=== PATIENT | male | born 1960 | race African-American/Black ===

== ENCOUNTER 2020-12-30 18:03 | Outpatient (REF) | payer MEDICARE, SELFPAY | END 2020-12-30 18:04 | disposition home or self-care (01) | LOC: HO.MRI 18:03 | PROVIDERS: PCP Internal Medicine Geriatric Medicine; Visit Provider Internal Medicine Geriatric Medicine | DX: Z13.89 Encounter for screening for other disorder (principal) ==

== ENCOUNTER 2021-05-22 14:49 | Outpatient (REF) | payer MEDICARE, SELFPAY ==
--- NOTE | ~2021-05-22 | US_ITS ---
EXAMINATION: US VENOUS ULTRASOUND WITH DOPPLER LOWER EXTREMITY, RIGHT CLINICAL INFORMATION: Right lower extremity pain. Assess for occult DVT. COMPARISON: None TECHNIQUE: Ultrasound of the deep veins is performed from the hip to the calf with compression sonography and color and pulse Doppler assessment. Spectral analysis with color-flow imaging is performed. FINDINGS: There is normal venous compression and respiratory variation and augmented flow. The visualized common femoral vein, superficial femoral vein, profunda femoral vein, popliteal vein, and the trifurcation region shows no evidence of deep venous thrombosis. No popliteal fossa cyst demonstrated. US/US venous duplex LE RT IMPRESSION: No DVT demonstrated in the right lower extremity.
[2021-05-22 17:11] LABS: Alanine Aminotransferase 16 U/L (0-40); Albumin Level 4.5 g/dL (3.5-5.0); Alkaline Phosphatase 81 U/L (39-117); Anion Gap 10 (12-20); Aspartate Amino Transferase 19 U/L (5-37); Bilirubin Total 1.1 mg/dL (0.0-1.0); Blood Urea Nitrogen 14 mg/dL (9-16); Calcium 9.5 mg/dL (8.4-10.2); Carbon Dioxide 27 mmol/L (22-29); Chloride 108 mmol/L (96-108); Estimated Glomerular Filt Rate 58; Glucose Random 82 mg/dL (60-115); Phosphorus 3.2 mg/dL (2.7-4.5); Potassium 4.1 mmol/L (3.3-5.1); Sodium 141 mmol/L (135-145)
[2021-05-22 17:36] LABS: Vitamin D 25-OH Total 45.2 ng/mL (>30)
[2021-05-23 17:01] LABS: Calcium (PTHI) 9.8 mg/dL (8.6-10.3); PTHI 31 pg/mL (14-64)
== END 2021-05-22 14:50 | disposition home or self-care (01) ==
LOC: HO.US 14:49
PROVIDERS: Internal Medicine; Visit Provider Internal Medicine Geriatric Medicine
DX: M79.661 Pain in right lower leg (principal); R79.89 Other specified abnormal findings of blood chemistry; E04.1 Nontoxic single thyroid nodule; E21.3 Hyperparathyroidism, unspecified; E55.9 Vitamin D deficiency, unspecified
CPT/HCPCS: 36415; 80053; 82306; 83970; 84100; 84439; 84443; 93971; Q3014

== ENCOUNTER 2021-05-27 15:48 | Outpatient (REF) | payer MEDICARE, SELFPAY ==
[2021-05-27 17:04] LABS: Alanine Aminotransferase 17 U/L (0-40); Albumin Level 4.5 g/dL (3.5-5.0); Alkaline Phosphatase 86 U/L (39-117); Aspartate Amino Transferase 18 U/L (5-37); Bilirubin Direct 0.3 mg/dL (0.0-0.5); Bilirubin Total 1.1 mg/dL (0.0-1.0); Total Protein 8.1 g/dL (6.5-8.0)
== END 2021-05-27 15:49 | disposition home or self-care (01) ==
LOC: HO.LAB 15:48
PROVIDERS: PCP Internal Medicine Geriatric Medicine; Visit Provider Internal Medicine
DX: E21.3 Hyperparathyroidism, unspecified (principal)
CPT/HCPCS: 36415; 80076

== ENCOUNTER → 2021-07-17 12:47 | Outpatient (BNVA) | payer MEDICARE, SELFPAY | PROVIDERS: PCP Internal Medicine Geriatric Medicine; Referring Provider Internal Medicine Geriatric Medicine; Visit Provider Nurse Practitioner | DX: E80.6 Other disorders of bilirubin metabolism (principal) | CPT/HCPCS: Q3014 ==

== ENCOUNTER 2021-08-07 07:54 | Outpatient (REF) | payer MEDICARE, SELFPAY ==
--- NOTE | ~2021-08-07 | US_ITS ---
EXAMINATION: US ABDOMEN COMPLETE CLINICAL INFORMATION: Other disorders of bilirubin metabolism. COMPARISON: Renal ultrasound 03/30/2019 TECHNIQUE: Real-time imaging of the abdominal viscera. FINDINGS: PANCREAS: Normal. ABDOMINAL AORTA: The proximal, mid, and distal segments are normal in caliber. INFERIOR VENA CAVA: Visualized portions are normal. LIVER: The liver is normal in size. The liver contour is normal. Liver echotexture is increased. No focal hepatic lesion. There is no intrahepatic biliary duct dilatation seen. GALLBLADDER: Normal. The gallbladder is physiologically distended without evidence of stones, sludge, polyps, wall thickening or pericholecystic fluid. COMMON BILE DUCT: Normal in caliber measuring 0.5 cm in diameter. RIGHT KIDNEY: There are 2 small 3 mm echogenic densities in the mid and lower pole questionable for stones. No hydronephrosis or focal parenchymal lesions. The kidney measures 11.9 cm in maximum dimension. LEFT KIDNEY: There is a small 2 and 3 mm echogenic densities in the upper and midpole questionable for stones.. There is a 3.8 x 3.6 x 3.1 cm cyst in the lower pole. This measured 2.8 x 2.8 x 3 cm on March 2019 exam. No hydronephrosis or renal calculi. The kidney measures 13.3 cm in maximum dimension. SPLEEN: Normal. The spleen measures 8.2 cm in maximum dimension. FREE FLUID: None. US/US abdomen complete IMPRESSION: Echogenic liver probably representing fatty infiltration. Question small bilateral renal stones. Left renal cyst.
== END 2021-08-07 07:55 | disposition home or self-care (01) ==
LOC: HO.US 07:54
PROVIDERS: PCP Internal Medicine Geriatric Medicine; Visit Provider Nurse Practitioner
DX: E80.6 Other disorders of bilirubin metabolism (principal)
CPT/HCPCS: 76700

== ENCOUNTER → 2021-08-14 14:57 | Outpatient (BNVA) | payer MEDICARE, SELFPAY | PROVIDERS: PCP Internal Medicine Geriatric Medicine; Referring Provider Internal Medicine Geriatric Medicine; Visit Provider Nurse Practitioner | DX: E80.6 Other disorders of bilirubin metabolism (principal) | CPT/HCPCS: 99212 ==

== ENCOUNTER → 2021-09-08 08:53 | Outpatient (BNVA) | payer MEDICARE, SELFPAY | PROVIDERS: PCP Internal Medicine Geriatric Medicine; Visit Provider Internal Medicine ==

== ENCOUNTER → 2021-09-08 09:10 | Outpatient (BNVA) | payer MEDICARE, SELFPAY | PROVIDERS: PCP Internal Medicine Geriatric Medicine; Visit Provider Internal Medicine | DX: E21.3 Hyperparathyroidism, unspecified (principal); E55.9 Vitamin D deficiency, unspecified; E04.1 Nontoxic single thyroid nodule | CPT/HCPCS: Q3014 ==

== ENCOUNTER 2023-08-03 12:17 | Outpatient (REF) | payer MEDICARE, SELFPAY ==
[2023-08-03 13:33] LABS: Appearance Urine Clear; Color Urine Yellow; Glucose Urine UA Negative (Negative); Leukocyte Esterase Urine Small (1+) (Negative); Nitrite Urine Positive (Negative); PH 5.5 (5.0-9.0); UMIC TRIGGER UACC YES; Urine Blood Trace (Negative); Urine Ketones Negative (Negative); Urine Protein Negative (Neg-Trace)
[2023-08-03 13:50] LABS: Bacteria Urine 4+ (None Seen); Hyaline Casts Urine 0-2 /LPF (0-2); RBC Urine 0-2 /HPF (0-2); Squamous Epithelial Cell Urine 0-2 /HPF (0-2); UACC Culture Trigger YES; WBC Urine 21-50 /HPF (0-5)
[2023-08-03 14:03] LABS: Alanine Aminotransferase 17 U/L (0-40); Albumin Level 4.4 g/dL (3.5-5.0); Alkaline Phosphatase 94 U/L (39-117); Anion Gap 12 (12-20); Aspartate Amino Transferase 23 U/L (5-37); Bilirubin Total 1.5 mg/dL (0.0-1.0); Blood Urea Nitrogen 11 mg/dL (9-16); Calcium 9.4 mg/dL (8.4-10.2); Carbon Dioxide 24 mmol/L (22-29); Chloride 110 mmol/L (96-108); Cholesterol 143 mg/dL (<200); Estimated Glomerular Filt Rate > 60; Glucose Random 87 mg/dL (60-115); HDL Cholesterol 46 mg/dL (>40); LDL Cholesterol Calculated 84 mg/dL (<100); Potassium 3.4 mmol/L (3.3-5.1); Sodium 143 mmol/L (135-145); Triglycerides 69 mg/dL (<150)
== END 2023-08-03 12:18 | disposition home or self-care (01) ==
LOC: HO.HHCL 12:17
PROVIDERS: Visit Provider Internal Medicine Geriatric Medicine
DX: I10 Essential (primary) hypertension (principal); E78.00 Pure hypercholesterolemia, unspecified; R30.0 Dysuria
CPT/HCPCS: 36415; 80053; 80061; 81001; 87086; 87088; 87186

== ENCOUNTER 2024-01-20 12:30 | Outpatient (REF) | payer MEDICARE, SELFPAY ==
[2024-01-20 13:28] LABS: Basophils Absolute Auto 0.1 X10*3/uL (0.0-0.2); Basophils Percent Auto 0.6 % (0-2); Eosinophils Absolute Auto 0.1 X10*3/uL (0.0-0.4); Eosinophils Percent Auto 1.6 % (0-4); Hematocrit 44.9 % (42.0-52.0); Hemoglobin 15.4 g/dl (14.0-18.0); Imm Gran Abs Auto 0.01 X10*3/uL (0.00-0.03); Imm Gran Pct Auto 0.1 % (0.0-0.4); Lymphocytes Absolute Auto 5.3 X10*3/uL (1.2-4.9); Lymphocytes Percent Auto 59.9 % (20-40); MANUAL DIFF FLAG SCAN; Mean Corpuscular HGB Conc 34.3 g/dl (31.0-36.0); Mean Corpuscular Hemoglobin 30.1 pg (27.0-33.0); Mean Corpuscular Volume 87.7 fL (80.0-98.0); Mean Platelet Volume 11.6 fL (9.4-12.4); Monocytes Absolute Auto 0.5 X10*3/uL (0.1-1.2); Neutrophils Absolute Auto 2.8 x10*3/uL (2.0-8.3); Neutrophils Percent Auto 31.8 % (45-73); Platelet Count 238 X10*3/uL (160-400); Red Blood Count 5.12 X10*6/uL (4.60-5.80); Red Cell Distribution Width 12.9 % (11.0-16.0); SCAN SMEAR FLAG 1; White Blood Count 8.9 X10*3/uL (4.8-10.8)
[2024-01-20 13:51] LABS: SLIDE REVIEW VERIFIED
[2024-01-20 14:00] LABS: Alanine Aminotransferase 16 U/L (0-40); Albumin Level 4.6 g/dL (3.5-5.0); Alkaline Phosphatase 95 U/L (39-117); Anion Gap 9 (12-20); Aspartate Amino Transferase 23 U/L (5-37); Bilirubin Total 1.4 mg/dL (0.0-1.0); Blood Urea Nitrogen 12 mg/dL (9-16); Calcium 9.7 mg/dL (8.4-10.2); Carbon Dioxide 29 mmol/L (22-29); Chloride 109 mmol/L (96-108); Cholesterol 230 mg/dL (<200); Estimated Glomerular Filt Rate > 60; Glucose Random 90 mg/dL (60-115); HDL Cholesterol 51 mg/dL (>40); LDL Cholesterol Calculated 160 mg/dL (<100); Potassium 3.6 mmol/L (3.3-5.1); Sodium 143 mmol/L (135-145); Total Protein 8.5 g/dL (6.5-8.0); Triglycerides 98 mg/dL (<150)
[2024-01-20 14:23] LABS: Prostate Specific Antigen < 0.10 ng/mL (<0.05-4.0)
== END 2024-01-20 12:31 | disposition home or self-care (01) ==
LOC: HO.HHCL 12:30
PROVIDERS: Visit Provider Internal Medicine Geriatric Medicine
DX: Z12.5 Encounter for screening for malignant neoplasm of prostate (principal); E78.00 Pure hypercholesterolemia, unspecified; M51.37 Other intervertebral disc degeneration, lumbosacral region; L43.9 Lichen planus, unspecified; E21.3 Hyperparathyroidism, unspecified; Z90.79 Acquired absence of other genital organ(s); I10 Essential (primary) hypertension
CPT/HCPCS: 36415; 80053; 80061; 84153; 85025

== ENCOUNTER 2024-04-27 12:35 | Outpatient (REF) | payer MEDICARE, SELFPAY ==
[2024-04-27 16:27] LABS: Alanine Aminotransferase 18 U/L (0-40); Albumin Level 4.5 g/dL (3.5-5.0); Alkaline Phosphatase 85 U/L (39-117); Anion Gap 13 (12-20); Aspartate Amino Transferase 20 U/L (5-37); Bilirubin Total 1.1 mg/dL (0.0-1.0); Blood Urea Nitrogen 15 mg/dL (9-16); Calcium 10.2 mg/dL (8.4-10.2); Carbon Dioxide 24 mmol/L (22-29); Chloride 110 mmol/L (96-108); Cholesterol 218 mg/dL (<200); Estimated Glomerular Filt Rate 59; Glucose Random 92 mg/dL (60-115); HDL Cholesterol 56 mg/dL (>40); LDL Cholesterol Calculated 144 mg/dL (<100); Potassium 3.8 mmol/L (3.3-5.1); Sodium 143 mmol/L (135-145); Total Protein 8.3 g/dL (6.5-8.0); Triglycerides 90 mg/dL (<150)
[2024-04-28 09:21] LABS: ~HepC Num1 0.18 S/CO (0.00-0.79); ~Hepatitis C Antibody Nonreactive (Nonreactive)
== END 2024-04-27 12:36 | disposition home or self-care (01) ==
LOC: HO.HHCL 12:35
PROVIDERS: Visit Provider Internal Medicine Geriatric Medicine
DX: Z11.59 Encounter for screening for other viral diseases (principal); E78.00 Pure hypercholesterolemia, unspecified
CPT/HCPCS: 36415; 80053; 80061; 86803

== ENCOUNTER 2024-09-05 10:07 | Outpatient (REF) | payer MEDICARE, SELFPAY ==
--- NOTE | 2024-09-05 10:10 | EMG_ITS ---
FINDINGS: Bilateral median and ulnar motor and sensory studies were performed. Bilateral radial and median and lateral antecubital brachial sensory studies were performed and paraspinal muscles were tested with a needle. IMPRESSION: This is an unremarkable study with no evidence of median or ulnar neuropathy, plexopathy, or radiculopathy. MD CHRISTIAN Mireles/ANNE / [id number]
== END 2024-09-05 10:08 | disposition home or self-care (01) ==
LOC: HO.NEURO 10:07
PROVIDERS: PCP Internal Medicine Geriatric Medicine; Visit Provider Internal Medicine Geriatric Medicine
DX: G56.03 Carpal tunnel syndrome, bilateral upper limbs (principal)
CPT/HCPCS: 95886; 95913

== ENCOUNTER 2024-12-15 12:04 | Outpatient (REF) | payer MEDICARE, SELFPAY ==
--- OUTSIDE RECORDS SUMMARY | 2024-12-15 13:46 | XMS_ITS | Encounter Summary ---
Author Organization [employer] Address [address] [facility] [address] [place] [address] Care Team Providers Care Mammalogist Name Role Phone Name, Arsh NEWBY Primary Care Provider [phone] Encounter Details Date Type Department Care Team (Latest Contact Info) Description 04/01/2021 Abstract [facility] Dental, Provider, DDS Social History Tobacco Use Types Packs/Day Years Used Date Smoking Tobacco: Never Assessed Sex and Gender Information Value Date Recorded Sex Assigned at Male 08/03/2022 10:35 AM EDT Legal Sex Male 10:35 AM EDT Gender Identity Male 08/03/2022 10:35 AM EDT Sexual Orientation Straight 08/03/2022 10 :35 AM EDT documented as of this encounter Plan of Treatment Not on file documented as of this encounter Visit Diagnoses Not on filedocumented in this encounter Care Teams Mammalogist Relationship Specialty Start Date End Date Name, MD Arsh [address] [place] [address] PCP - General Family Medicine 12/23/18 documented as of this encounter
--- OUTSIDE RECORDS SUMMARY | 2024-12-15 13:46 | XMS_ITS | Encounter Summary ---
Author Organization [employer] Address [address] [facility] [address] [place] [address] Care Team Providers Care Flight Test Supervisor Name Role Phone Name, Arsh NEWBY Primary Care Provider [phone] Reason for Visit * Reason Comments Med Refill Encounter Details Date Type Department Care Team ([facility] st Contact Info) Description 11/17/2023 Refill [facility] [address] [place] [address] Name, MD Arsh [address] [place], [place] [id number] High cholesterol Social History Tobacco Use Types Packs/Day Years Used Date Smoking Tobacco: Never Smokeless Tobacco: Never Alcohol Use Standard Drinks/Week Comments Never 0 (1 standard drink = 0.6 oz pur e alcohol) Depression Answer Date Recorded Patient Health Questionnaire-9 Score 0 02/25/2023 Housing Stability Answer Date Recorded What is your housing situation today? I have jane diaz 08/02/[address] you li ve. Do you have problems with any of the following? None of the above 08/02/2023 Food Insecurity Answer Date Recorded Within the past 12 months, y ou worried that your food would run out before you got money to buy more: Never True 08/02/2023 Within the past 12 months,th e food you bought just didn't last and you didn't have enough money to get more: Never True Transportation Answer Date Recorded In the past 12 months, has l ack of transportation kept you from medical appts, meetings, work or from getting things needed for daily living? No 08/02/2023 Utilities Answer Date Recorded In the past 12 months, has t he electric, gas, oil or water company threatened to shut off services in your home? No 08/02/2023 Depression Answer Date Recorded Patient Health Questionnaire-2 Score 0 02/25/2023 Sex and Gender Information Value Date Recorded Sex Assigned at Male 08/03/2022 10:35 AM EDT Legal Sex Male 10:35 AM EDT Gender Identity Male 08/03/2022 10:35 AM EDT Sexual Orientation Straight 08/03/2022 10 :35 AM EDT documented as of this encounter Plan of Treatment Not on file documented as of this encounter Visit Diagnoses Diagnosis High cholesterol Pure hypercholesterolemia documented in this encounter Additional Health Concerns Assessment Noted Time PHQ-9 Depression Total Score: 0 02/26/20 23 11:09 AM EDT documented as of this encounter Care Teams Flight Test Supervisor Relationship Specialty Start Date End Date Name, MD Arsh [address] [place] [address] PCP - General Family Medicine 12/23/18 documented as of this encounter
--- OUTSIDE RECORDS SUMMARY | 2024-12-15 13:46 | XMS_ITS | Encounter Summary ---
Author Organization [employer] Address [address] [facility] [address] [place] [address] Care Team Providers Care Boat Oar Maker Name Role Phone Name, Arsh NEWBY Primary Care Provider [phone] Encounter Details Date Type Department Care Team (Latest Contact Info) Description 12/12/2024 Travel Social History Tobacco Use Types Packs/Day Years Used Date Smoking Tobacco: Never Smokeless Tobacco: Never Alcohol Use Standard Drinks/Week Comments Never 0 (1 standard drink = 0.6 oz pur e alcohol) Depression Answer Date Recorded Patient Health Questionnaire-9 Score 0 04/25/2024 Patient Health Questionnaire-9 Score 0 04/25/2024 Last PHQ-9: Questionnaire Data Not on file 0 04/25/2024 Housing Stability Answer Date Recorded What is your housing situation today? I have jane diaz 04/25/[address] you li ve. Do you have problems with any of the following? None of the above 04/25/2024 Food Insecurity Answer Date Recorded Within the past 12 months, y ou worried that your food would run out before you got money to buy more: Never True 04/25/2024 Within the past 12 months,th e food you bought just didn't last and you didn't have enough money to get more: Never True Transportation Answer Date Recorded In the past 12 months, has l ack of transportation kept you from medical appts, meetings, work or from getting things needed for daily living? No 04/25/2024 Utilities Answer Date Recorded In the past 12 months, has t he electric, gas, oil or water company threatened to shut off services in your home? No 04/25/2024 Depression Answer Date Recorded Patient Health Questionnaire-2 Score 0 04/25/2024 Internet Access Answer Date Recorded Internet Access Q1 No 06/05/2024 Internet Access Q2 I do not want or need it 11/2023 Sex and Gender Information Value Date Recorded Sex Assigned at Male 08/03/2022 10:35 AM EDT Legal Sex Male 10:35 AM EDT Gender Identity Male 08/03/2022 10:35 AM EDT Sexual Orientation Straight 08/03/2022 10 :35 AM EDT documented as of this encounter Plan of Treatment Not on file documented as of this encounter Visit Diagnoses Not on filedocumented in this encounter Additional Health Concerns Assessment Noted Time PHQ-9 Depression Total Score: 0 04/25/20 24 11:01 AM EDT documented as of this encounter Care Teams Boat Oar Maker Relationship Specialty Start Date End Date Name, MD Arsh [address] [place] [address] PCP - General Family Medicine 12/23/18 documented as of this encounter
--- OUTSIDE RECORDS SUMMARY | 2024-12-15 13:46 | XMS_ITS | Clinical Summary ---
Author Organization [employer] Address [address] [facility] [address] [place] [address] Care Team Providers Care Nurse Anesthesia Program Director Name Role Phone Name, Arsh NEWBY Primary Care Provider [phone] Allergies No known active allergies Medications omeprazole (PriLOSEC) [address] capsule Take 1 capsule by mouth at bed time. 2 Active Blood Pressure Monitor kitIndications:Es sential hypertension Use once a day 1 kit 3 Active triamcinolone (Kenalog) 0.1 % ointmentIndicatio ns:Lichen planus Apply topically 2 times daily. 453.6 g 1 3 Active amLODIPine (Norvasc) 5 MG tabletIndications :Primary hypertension Take 1 tablet (5 mg) by mouth Once per day. 30 tablet 11 4 04/25/20 25 Active ezetimibe (Zetia) 10 MG tablet Take 1 tablet (10 mg) by mouth Once per day. 30 tablet 11 4 04/28/20 25 Active tadalafil (Cialis) 20 MG tablet Take 1 tablet (20 mg) by mouth if needed each day for erectile dysfunction. 10 tablet 4 Active Active Problems Problem Noted Date Diagnosed Date Statin intolerance 04/25/2024 High cholesterol 08/02/2023 Rash/skin eruption 08/02/2023 Overview (08/02/2023): -question mollescum contigosum, lichen planus -referral to dermatology placed Male urinary stress incontinence 10/28/2022 History of robot-assisted la paroscopic radical prostatectomy 10/28/2022 Hearing loss of left ear 10/28/2022 Primary hypertension 10/28/2022 Degeneration of intervertebral disc of lumbosacr al region 10/28/2022 Vitamin D deficiency 10/28/2022 Malignant tumor of prostate 07/29/2021 Overview (10/28/2022): S/p prostatectomy Hyperparathyroidism 01/06/2019 Overview (10/28/2022): S/p parathyroidectomy Chronic low back pain 12/23/2018 Rotator cuff arthropathy of left shoulder 2018 Radicular pain 12/23/2018 Resolved Problems Problem Noted Date Diagnosed Date Resolved Date Osteoarthritis of shoulder 10/28/2022 0 01/12/2024 Raised prostate specific antigen 10/28/2022 10/28/2022 Hypercalcemia 12/27/2018 04/25/2024 Encounters Date Type Department Care Team Description 12/12/2024 1:00 PM EDT Office Visit [facility] [address] [place] [address] Name, MD Arsh Primary hypertension (Primary Dx); High cholesterol; History of prostate cancer; S/P prostatectomy; Encounter for immunization 12/12/2024 Travel 10/05/2024 Telephone [facility] [address] [place] [address] Tomas Quiñones [place] Jan recalls from Last 3 Months Immunizations Name Administration Dates Next Due Influenza Injectable Quadriv alant Preservative Free IIV4 MDCK 07/08/2018 Influenza injectable quadriv alent preservative free 08/02/2023,06/26/2022,09/01/2021,2019 Influenza, IIV3, injectable 11/05/2017,1 ,09/06/2015,2012 Influenza, seasonal, injecta ble, preservative free 07/26/2024 Pfizer Covid-19 Vaccine 12+ 09/14/2023,1 11/09/2020,11/28/2020,2020 Pneumococcal Conjugate PCV 20 12/12/2024 Td (adult), unspecified 01/26/2001 Tdap 12/18/2020,11/10/2010 Zoster, Recombinant 11/28/2021,09/01/2021 Social History Tobacco Use Types Packs/Day Years Used Date Smoking Tobacco: Never Smokeless Tobacco: Never Tobacco Cessation:Counseling Given: Not Answered Alcohol Use Standard Drinks/Week Comments Never 0 [...] Orientation Straight 08/03/2022 10 :35 AM EDT Last Filed Vital Signs Vital Sign Reading Time Taken Comments Blood Pressure 136/80 12/12/2024 1:03 PM EDT Pulse 70 12/12/2024 1:03 PM EDT Temperature 36.6 ??C (97.8 ??F) 12/12/2024 1:03 PM ED T Respiratory Rate 21 12/12/2024 1:03 PM EDT Oxygen Saturation 98% 12/12/2024 1:03 PM EDT Inhaled Oxygen Concentration - - Weight 96.3 kg (212 lb 6.4 oz) 12/12/2024 1:03 P M EDT Height 180.3 cm (5' 11 ) 12/12/2024 1:03 PM EDT Body Mass Index 29.62 12/12/2024 1:03 PM EDT Plan of Treatment Health Maintenance Due Date Last Done Comments CT Colonography 1961 Colonoscopy 1961 FIT DNA/Cologuard 1961 FOBT 1961 HIV Screening 1961 Sigmoidoscopy 1961 COVID-19 Vaccine ( season) 2024 09/14/2023, 09/08/2021, 11/28/2020, Additional history exists Colorectal Cancer Screening 06/14/2024 FIT 06/14/2024 06/14/2023 Alcohol/Substance Use Screening 04/25/2025 04/25/2024 Depression Screening 04/25/2025 04/25/2024, 04/25/20 24 SDOH Screening 04/25/2025 04/25/2024 Tobacco Screening 12/12/2025 12/12/2024 Lipid Panel 04/27/2029 04/27/2024, 0405/2024, 08/03/2023, Additional history exists DTaP/Tdap/Td Vaccines (3 - Td or Tdap) 12/18/2030 12/18/2020, 11/10/2010, 01/26/2001 RSV Patients and Patients Aged 60 years or older (1 - 1-dose 75+ series) 2036 Zoster Vaccines Completed 11/28/2021, 09/01/2021 Hepatitis C Screening Completed 04/27/2024 Influenza Vaccine Completed 07/26/2024, , 06/26/2022, Additional history exists Pneumococcal Vaccine: 50+ Years Completed 12/12/2024 HIB Vaccines Aged Out No longer eligi ble based on patient's age to complete this topic HPV Vaccines Aged Out No longer eligi ble based on patient's age to complete this topic Hepatitis A Vaccines Aged Out No long er eligible based on patient's age to complete this topic Hepatitis B Vaccines Aged Out No long er eligible based on patient's age to complete this topic IPV Vaccines Aged Out No longer eligi ble based on patient's age to complete this topic Meningococcal Vaccine Aged Out No niki catherine eligible based on patient's age to complete this topic RSV under 20 months Aged Out No longe r eligible based on patient's age to complete this topic Rotavirus Vaccines Aged Out No longer eligible based on patient's age to complete this topic Procedures Procedure Name Priority Date/Time Associated Diagnosis Comments HEPATITIS C AB W/REFL TO HCV RNA, QN, PCR Routine 04/27/2024 12:45 PM EDT Need for hepatitis C screening test LIPID PANEL, STANDARD Routine 04/27/2024 12:45 PM EDT High cholesterol HM FECAL IMMUNOCHEMICAL TEST Routine 06/14/2023 from Last 3 Months or Most Recently Relevant to Health Maintenance Results * Hepatitis C Antibody with Reflex to HCV, RNA, Quantitative, Real-Time PCR (04/27/2024 12:45 PM EDT) Hepatitis C Antibody Nonreactive Nonreactive [facility] Comment:Antibodies to HCV no t detected; does not exclude early acuteHCV infection. Blood Venous blood specimen / Unknown 04/27/2024 12:45 PM EDT 04/27/2024 3:59 PM EDT us Arsh Name LAB BLOOD ORDERABLES Final Resul t [facility] [address] [place] [phone] * (ABNORMAL) Lipid Panel, Standard (04/27/2024 12:45 PM EDT) Triglycerides 90 <150 mg/dL [facility] Comment:Desirable Triglyceri de: less than 150 mg/dLBorderline High Triglyceride 150-199 mg/dLHigh Triglyceride: 200-499 mg/dLVery High Triglyceride: greater than or equal to 5OO mg/dL Cholesterol 218(H) <200 mg/dL [facility] Comment:Desirable Cholestero l: less than 200 mg/dLBorderline High Cholesterol: 200-239 mg/dLHigh Cholesterol: greater than 239 mg/dL LDL Cholesterol Calculated 144(H) <100 mg/dL [facility] Comment:Desirable LDL: less than 100 mg/dLNear Optimal/Above Optimal LDL: 110- 129 mg/dLBorderline High LDL: 130-159 mg/dLHigh LDL: 160-189 mg/dLVery High LDL: greater than or equal to 190 mg/dL HDL Cholesterol 56 >40 mg/dL [facility] Comment:Desirable HDL: great er than 40 mg/dL Note: This HDL assay may give artificially low results in patients with liver disease. Blood Venous blood specimen / Unknown 04/27/2024 12:45 PM EDT 04/27/2024 3:59 PM EDT us Arsh Piper MD LAB BLOOD ORDERABLES Final Resul t [facility] [address] [place] [phone] * Fecal Immunochemical Test (06/14/2023) Fecal Immunochemical Test Nonreactive Stool Rectal contents / Unknown us Arsh Piper MD HEALTH MAINTENANCE Final Result from Last 3 Months or Most Recently Relevant to Health Maintenance [place] [address] [place] [address] [facility] MEDICARE ADVANTAGE HMO Care Teams Nurse Anesthesia Program Director Relationship Specialty Start Date End Date Name, MD Arsh [address] [place] [id number] PCP - General Family Medicine 12/23/18
--- OUTSIDE RECORDS SUMMARY | 2024-12-15 13:46 | XMS_ITS | Encounter Summary ---
Author Organization [employer] Address [address] [facility] [address]t [place] [address] Care Team Providers Care House Carpenter Name Role Phone Name, Arsh NEWBY Primary Care Provider [phone] Reason for Visit * Reason Comments Follow-up Encounter Details Date Type Department Care Team ([facility] Contact Info) Description 12/12/2024 1:00 PM EDT Office Visit [facility] [address] [place], [place] [phone] Name, MD Arsh [address] [place] [address] Primary hypertension (Primary Dx); High cholesterol; History of prostate cancer; S/P prostatectomy; Encounter for immunization Social History Tobacco Use Types Packs/Day Years [...] AM EDT documented as of this encounter Last Filed Vital Signs Vital Sign Reading [...] Mass Index 29.62 12/12/2024 1:03 PM EDT documented in this encounter Progress Notes * Arsh Piper MD - 12/12/2024 1:00 PM EDT Subjective Patient ID: Akash Conley is a 64 y.o. male who presents for Follow-up. Patient comes for a follow-up visit. BP is well-controlled today. The patient is using his amlodipine daily. He has noted constipation secondary to the use of amlodipine. He has high cholesterol. He does not want to use a statin. He was prescribed Zetia for high cholesterol and he uses the medication most of the time. The patient has changed his diet considerably. The patient is avoiding animal protein. He is eatinga lot of vegetables, fruits, nuts and seeds. He would like to recheck his cholesterol and I agree. I also recommended to recheck his PSA. He has history of prostate cancer in the past. He was diagnosed because of an elevated PSA. Fortunately he had early disease that was treated with prostatectomy. His PSA last year was undetectable. Review of Systems Constitutional: Negative for chills, fatigue and fever. HENT: Negative for sore throat. Respiratory: Negative for cough, chest tightness and shortness of breath. Cardiovascular: Negative for chest pain, palpitations and leg swelling. Gastrointestinal: Negative for abdominal pain and blood in stool. Musculoskeletal: Chronic low back pain on and off. History of severe DJD of the lumbar spine. Visit Vitals BP 136/80 (BP Location: Left arm, Patient Position: Sitting, BP Cuff Size: Large adult) Pulse 70 Temp 97.8 ??F (36.6 ??C) (Temporal) Resp 21 Ht 5' 11 (1.803 m) Wt 212 lb 6.4 oz (96.3 kg) SpO2 98% BMI 29.62 kg/m?? Smoking Status Never BSA 2.2 m?? Objective Physical Exam Constitutional: Appearance: Normal appearance. Cardiovascular: Rate and Rhythm: Normal rate and regular rhythm. Heart sounds: No murmur heard. Pulmonary: Effort: Pulmonary effort is normal. No respiratory distress. Breath sounds: No wheezing, rhonchi or rales. Abdominal: Palpations: Abdomen is soft. Tenderness: There is no abdominal tenderness. Musculoskeletal: Right lower leg: No edema. Left lower leg: No edema. Neurological: Mental Status: He is alert. Assessment/Plan Diagnoses and all orders for this visit: Primary hypertension Comments: Continue current dose of amlodipine. The patient is congratulated on his dietary changes. He is also planning to start exercising using a bicycle soon and is encouraged to do so. I encourage him to use a helmet. Check fasting blood work listed below. Recheck PSA. PCV 20 vaccine today. Orders: - Comprehensive Metabolic Panel; Future - Lipid Panel, Standard; Future - PSA,Total; Future High cholesterol - Comprehensive Metabolic Panel; Future - Lipid Panel, Standard; Future - PSA,Total; Future History of prostate cancer - Comprehensive Metabolic Panel; Future - Lipid Panel, Standard; Future - PSA,Total; Future S/P prostatectomy - Comprehensive Metabolic Panel; Future - Lipid Panel, Standard; Future - PSA,Total; Future Encounter for immunization - PCV-20 VACCINE 6 wks + documented in this encounter Plan of Treatment Scheduled Orders Name Type Priority Associated Diagnoses Orde r Schedule Comprehensive Metabolic Panel Lab Routine Primary hypertension High cholesterol History of prostate cancer S/P prostatectomy Expected: 12/12/2024 (Approximate), Expires: 12/12/2025 Lipid Panel, Standard Lab Routine Primary hypertension High cholesterol History of prostate cancer S/P prostatectomy Expected: 12/12/2024 (Approximate), Expires: 12/12/2025 PSA,Total Lab Routine Primary hypertension High cholesterol History of prostate cancer S/P prostatectomy Expected: 12/12/2024, Expires: 12/12/2025 documented as of this encounter Visit Diagnoses Diagnosis Primary hypertension- Primary Unspecified essential hypertension High cholesterol Pure hypercholesterolemia History of prostate cancer Personal history of malignant neoplasm of prostate S/P prostatectomy Other postprocedural status Encounter for immunization documented in this encounter Additional Health Concerns Assessment Noted Time PHQ-9 Depression Total Score: 0 04/25/20 24 11:01 AM EDT documented as of this encounter Care Teams House Carpenter Relationship Specialty Start Date End Date Name, MD Arsh [address] [place] [address] PCP - General Family Medicine 12/23/18 documented as of this encounter
--- OUTSIDE RECORDS SUMMARY | 2024-12-15 13:46 | XMS_ITS | Clinical Summary ---
Author Organization [facility] [employer] [facility] ity Address [address] [place] [address] Care Team Providers Care Residential Insurance Inspector Name Role Phone Unavailable Primary Care Provider Unavailabl e Surgical History Surgery Date Site/Laterality Comments ELBOW SURGERY PROCEDURE: HISTORICAL ELBOW SURGERY; COMMENT: Right OTHER SURGICAL HISTORY PROCEDURE: [place] [facility] [place] SHOULDER DISLC W/MANIPULATION W/O ANES; COMMENT: Left OTHER SURGICAL HISTORY 10/11 PROCEDURE: CHG ASSAY OF PROSTATE SPECIFIC ANTIGEN FREE; COMMENT: 0.4 OTHER SURGICAL HISTORY 04/20/08 PROCEDURE: ARTHROSCOPY SHOULDER SURGI; COMMENT: José Miguel; Left Medical History Medical History Date Comments Other specified disorder of male genital organs(608.89) 12/17/2005 DX:Other specified disorder of male genital organs(608.89) Shoulder pain 10/21/2007 DX:Shoulder pain ; COMMENT: Left Family History Medical History Relation Name Comments Hypertension Brother 1 Other: HIV Brother 2 Heart attack Father Hypertension Father Other: BPH Father Stroke Father Breast cancer Mother Hypertension Sister 1 Diabetes Sister 2 Relation Name Status Comments Brother 1 Brother 2 Brother 3 Father Mother Sister 1 Sister 2 Sister 3 Social History Tobacco Use Types Packs/Day Years Used Date Smoking Tobacco: Never Alcohol Use Standard Drinks/Week Comments No 0 (1 standard drink = 0.6 oz pur e alcohol) Sex and Gender Information Value Date Recorded Sex Assigned at Not on file Legal Sex Male 11:48 AM EST Gender Identity Not on file Sexual Orientation Not on file Obstetrics History Plan of Treatment Health Maintenance Due Date Last Done Comments DTaP,Tdap,and Td Vaccines (1 - Tdap) 1980 Pneumococcal Vaccine: 50+ Ye ars (1 of 1 - PCV) 2011 Zoster Vaccines (1 of 2) 2011 COVID-19 Vaccine (2023-2 5 season) 2024 Influenza Vaccine (#1) 2024 RSV Immunization Patients 60 + Years Old (1 - 1-dose 75+ series) 2036 HIB Vaccines Aged Out No longer eligi [...] on patient's age to complete this topic MMR Vaccines Aged Out No longer eligi ble based on patient's age to complete this topic Meningococcal ACWY Vaccine Aged Out N o longer eligible based on patient's age to complete this topic Meningococcal B Vacine Aged Out No lo nger eligible based on patient's age to complete this topic Pneumococcal Vaccine: Pediat rics (0 to 5 Years) and At-Risk Patients (6 to 64 Years) Aged Out No longer eligible b ased on patient's age to complete this topic RSV Immunization Patients Un rosa 20 months Aged Out No longer eligible b ased on patient's age to complete this topic Varicella Vaccines Aged Out No longer eligible based on patient's age to complete this topic
[2024-12-15 14:26] LABS: Prostate Specific Antigen < 0.10 ng/mL (<0.05-4.0)
[2024-12-15 14:27] LABS: Alanine Aminotransferase 20 U/L (0-40); Albumin Level 4.2 g/dL (3.5-5.0); Alkaline Phosphatase 90 U/L (39-117); Anion Gap 12 (12-20); Aspartate Amino Transferase 30 U/L (5-37); Bilirubin Total 1.1 mg/dL (0.0-1.0); Blood Urea Nitrogen 16 mg/dL (9-16); Calcium 8.9 mg/dL (8.4-10.2); Carbon Dioxide 22 mmol/L (22-29); Chloride 113 mmol/L (96-108); Cholesterol 199 mg/dL (<200); Estimated Glomerular Filt Rate > 60; Glucose Random 88 mg/dL (60-115); HDL Cholesterol 49 mg/dL (>40); LDL Cholesterol Calculated 137 mg/dL (<100); Potassium 3.7 mmol/L (3.3-5.1); Sodium 143 mmol/L (135-145); Total Protein 8.2 g/dL (6.5-8.0); Triglycerides 67 mg/dL (<150)
== END 2024-12-15 12:05 | disposition home or self-care (01) ==
LOC: HO.HHCL 12:04
PROVIDERS: Visit Provider Internal Medicine Geriatric Medicine
DX: Z12.5 Encounter for screening for malignant neoplasm of prostate (principal); I10 Essential (primary) hypertension; E78.00 Pure hypercholesterolemia, unspecified; Z90.79 Acquired absence of other genital organ(s); Z85.46 Personal history of malignant neoplasm of prostate
CPT/HCPCS: 36415; 80053; 80061; 84153

== ENCOUNTER 2025-05-23 15:00 | Outpatient (AMB) | payer MEDICARE, SELFPAY ==
--- NOTE | 2025-05-23 15:07 | MHC.OFFVIS ---
Vital Signs 05/23/25 15:22 Height 6 ft Weight 167 lb BMI 22.6 BP 139/71 Blood Pressure Location Lt brachial Position Sitting Pulse 73 Pulse Oximetry (%) 98 Oxygen Delivery Method Room Air Intake Visit Reasons: [employer] screening, Recall. >3 years Intake Note: Akash presents in the office as a colonoscopy screening. Patient cc: sometimes constipation on and off, denies any other GI issues. Toeing Stockings Required: No Accompanied by: Self / Same As Patient Allergies No Known Allergies Allergy (Verified 05/23/25 15:21) HPI HPI [employer] screening, Recall. >3 years: Details: 64-year-old male here for preprocedural meeting to discuss a screening colonoscopy. He is referred by [facility]. 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 Rotator cuff arthropathy Overweight GERD CONSTIPATION * SURGICAL HISTORY Throat surgery Achilles tendon repair * ALLERGIES: NKDA * [employer] LABS: Laboratory Tests 12/15/24 12:06 Estimated GFR > 60 Total Bilirubin 1.1 H AST 30 ALT 20 Alkaline Phosphatase 90 TODAY'S VISIT I had seen him in 2020 for hyperbilirubinemia that was negative [facility] Medical History Hyperbilirubinemia Hyperparathyroidism Thyroid nodule Vitamin D deficiency Surgical History History of throat surgery History of Achilles tendon repair Family History Father Heart problem Prostate cancer Mother Breast cancer Social History Alcohol intake: never Patient Tobacco Use Status: Never used Tobacco Review of Systems Const Denies fatigue, Denies fever(s), Denies night sweats, Denies poor appetite and Denies weight loss Eyes Details: glasses Reports requires corrective lenses ENT Reports Normal hearing present, Denies dental pain, Denies dysphagia, Denies hearing loss, Denies mouth pain, Denies odynophagia, Denies throat swelling, Denies tongue swelling and Reports other (Dentition adequate) Card Reports no additional complaints Resp Reports no additional complaints GI Details: Denies abdominal pain, Denies melena, Denies bloating, Denies hematochezia, Denies constipation, Denies GI cramping, Denies dysphagia, Denies excessive flatus, Denies early satiety, Denies heartburn, Denies diarrhea, Denies nausea, Denies odynophagia, Denies vomiting and Denies hematemesis Skin/Breast Denies pruritus, Denies lesions, Denies rash and Denies jaundice Neuro Reports Normal hearing present and Denies Abnormal speech present Endo Denies fatigue Aller/Immun Denies throat swelling and Denies tongue swelling Physical Exam Vital Signs: Last Vital Signs Pulse 73 05/23/25 15:22 BP 139/71 05/23/25 15:22 Pulse Ox 98 05/23/25 15:22 Oxygen Delivery Method Room Air 05/23/25 15:22 BMI result Body Mass Index 22.6 Const General: cooperative, no acute distress, well developed and well groomed Nutritional Appearance: average body habitus and well nourished Orientation/consciousness: oriented to person, oriented to place and oriented to time Limitations: No language barrier HEENT Head: Yes normocephalic and Yes atraumatic Eyes General: appearance normal, both eyes and all related structures Pupils: Equal, round and reactive pupils present Neck Neck: Yes normal visual inspection and Yes no lymphadenopathy Thyroid: Thyroid normal Resp Effort & Inspection: normal respiratory effort and able to speak in complete sentences Auscultation: clear to auscultation bilaterally Cardio Rate: regular rate Rhythm: regular rhythm Heart sounds: Normal, physiologic split S2 sound present Peripheral pulses: radial pulses present and posterior tibial pulses present GI Inspection: No distended and No Abdominal panniculus present Palpation (GI): Soft to palpation, nontender, no guarding, not rigid and No hepatosplenomegaly present Percussion: Yes normal to percussion Auscultation: normal bowel sounds Rectal Exam - Male: Yes deferred Skin General skin exam: no rashes or lesions noted, turgor normal, skin not dry, no jaundice, No spider nevi and no striae Rashes: no rashes Nails: normal Neuro General: oriented to person, oriented to place and oriented to time Cranial nerves: Yes Equal, round and reactive pupils present and Yes Normal hearing present Speech: No Abnormal speech present Extrem General: Yes normal to inspection, No clubbing, No cyanosis and No edema Psych Appearance: grossly normal and well kempt Mental Status: mental status grossly normal Speech and movement: Normal speech and movement present Affect: normal affect Attitude: cooperative Thought process: Normal thought process present and not confabulating Thought content: Normal thought content present Insight: Good insight present (Psych) Judgement: Good judgement present (Psych) Assessment & Plan Assessment & Plan (1) Encounter for colorectal cancer screening using Cologuard test: Comment: 05/2025= negative Cologuard repeat in 3 years Code(s): Z12.11 - Encounter for screening for malignant neoplasm of colon; Z12.12 - Encounter for screening for malignant neoplasm of rectum Category: Medical Plan While he presents to us today for a screening colonoscopy with discussion we discovered that he just submitted a Cologuard last week. Given that this study was negative any has no family history of colon cancer or colon polyps, and given doubt that the insurance would pay for 2 different kinds of screenings, I gave him a copy of the results and tell him that we can repeat this in 3 years and should it become positive or if he should develop concerning symptoms then we can progress to colonoscopy. P.r.n. Coding Level of Care Code New Pt Level 3 (28939) Diagnoses Encounter for colorectal cancer screening using Cologuard test Z12.11; Z12.12
[2025-05-23 15:22] VITALS: BP 139/71; PULSE 73; O2SAT 98; BMI 22.6
--- OUTSIDE RECORDS SUMMARY | 2025-05-23 15:55 | XMS_ITS | Encounter Summary ---
Author Organization [employer] Address [address] [place] [address] Care Team Providers Care Engineer Technical Staff Name Role Phone Name, Arsh NEWBY Primary Care Provider Reason for Visit * Reason Comments Med Refill Encounter Details Date Type Department Care Team (Late st Contact Info) Description 11/17/2023 Refill [facility] [address] [place] [address] Name, MD Arsh [address] [place] [address] High cholesterol Social History Tobacco Use Types [...] documented as of this encounter Care Teams Engineer Technical Staff Relationship Specialty Start Date End Date Name, MD Arsh [address] [place] [address] PCP - General Family Medicine 12/23/18 documented as of this encounter
--- OUTSIDE RECORDS SUMMARY | 2025-05-23 15:55 | XMS_ITS | Clinical Summary ---
Author Organization [facility] [employer] [facility] ity Address [address] [place] [address] Care Team Providers Care Pv Design And Installation Technician Name Role Phone Unavailable Primary Care Provider Unavailabl e Surgical History Surgery Date Site/Laterality Comments ELBOW SURGERY PROCEDURE: HISTORICAL ELBOW SURGERY; COMMENT: Right OTHER SURGICAL HISTORY PROCEDURE: [place] [facility] [place] SHOULDER DISLC W/MANIPULATION W/O ANES; [...] 2011 COVID-19 Vaccine (2023-2 5 season) 2024 Depression Screening 10/04/2024 Influenza Vaccine (#1) 2025 RSV Immunization Adult Patie nts (1 - 1-dose 75+ series) 2036 HIB [...] age to complete this topic Meningococcal B Vaccine Aged Out No l onger eligible based on patient's age to complete this topic RSV Immunization Patients Un rosa 20 months Aged Out No longer eligible b ased on patient's age to complete this topic Varicella Vaccines Aged Out No longer eligible based on patient's age to complete this topic
--- OUTSIDE RECORDS SUMMARY | 2025-05-23 15:55 | XMS_ITS | Patient Health Record ---
Author Organization [facility] [place] Address [address] [place] [address] Care Team Providers Care Rope Tier Name Role Phone Jennifer NEWBY, Ana Primary Care Provider Darío Ortega Unavailable [phone] Reason For Referral No Information Social History Tobacco use other than smoking: Question Answer Notes Are you an other tobacco user? No Problems Problem Type SNOMED Code ICD Code Onset Dates Problem Status W/U Status Risk Notes Problem Plantar fascial fibromatosis (18016738) Plantar fascial fibromatosis (M72.2) Active confirmed Problem Plantar wart (67946571) Plantar wart (B07.0) Active confirmed Plan Of Treatment Pending Test Test Name Order Date [id number] Destruction, -08/06/2016 [id number] Destruction, -08/31/2016 Insurance Providers Payer Name Payer Address Payer Phone Subscriber Number Group Number Insured Name Patient Relationship to Insured Coverage Start Date Coverage End Date Medicare [employer] [address] [place] [address] [id number] Akash Conley Self - patient is the insured Medical (General) History Medical History History ICD Code Angina Arthritis Back,Hip,and Knee pain CAD (Cholesterol) Headaches Chicken pox Surgical History Surgery Date(Month/Year) achilles heel surgery 2009
== END 2025-05-23 15:47 | disposition home or self-care (01) ==
LOC: HO.HGI 15:00
PROVIDERS: PCP Internal Medicine Geriatric Medicine; Visit Provider Nurse Practitioner
DX: K59.00 Constipation, unspecified (principal); K21.9 Gastro-esophageal reflux disease without esophagitis
CPT/HCPCS: 99203

== ENCOUNTER → 2025-05-23 15:00 | Outpatient (BNVA) | payer MEDICARE, SELFPAY | PROVIDERS: PCP Internal Medicine Geriatric Medicine; Visit Provider Nurse Practitioner | DX: Z12.11 Encounter for screening for malignant neoplasm of colon (principal); Z12.12 Encounter for screening for malignant neoplasm of rectum | CPT/HCPCS: 99202 ==

== ENCOUNTER 2025-09-05 15:52 | Outpatient (REF) | payer MEDICARE, SELFPAY ==
--- NOTE | ~2025-09-05 | XR_ITS ---
EXAM: CR Xr Cervical Spine 4v TECHNIQUE: AP, AP odontoid, lateral, bilateral oblique views, x-rays of the cervical spine INDICATION: Neck pain with left upper extremity radiculopathy PRIOR: December 27, 2018 FINDINGS: There is straightening of the cervical lordosis. There is no prevertebral soft tissue swelling. C2-3: Unremarkable C3-4: Mild disc space narrowing with endplate sclerosis and osteophytes. There is mild to moderate left foraminal narrowing and minimal right foraminal narrowing. C4-5: Moderate disc space narrowing with endplate osteophytes and sclerosis. There is mild bilateral foraminal narrowing. C5-6: Bony fusion C6-7: There is mild to moderate disc space narrowing with endplate sclerosis and osteophytes. There is moderate right and minimal left foraminal narrowing. C7-T1: There is mild disc space narrowing and uncovertebral osteophytes with mild to moderate right and mild left foraminal narrowing. XR/XR cervical spine 4V IMPRESSION: There is straightening of the expected cervical lordosis. This can be idiopathic, but can also be related to degenerative change, muscle spasm, or posterior soft tissue injury. Multilevel degenerative changes are most pronounced at C4-5. There is fusion versus nonsegmentation of C5-6 vertebral bodies. Electronically signed by: Kiko Lara MD 09/05/2025 04:36 PM [facility]
--- NOTE | ~2025-09-05 | XR_ITS ---
EXAMINATION: XR FOOT, LEFT CLINICAL INFORMATION: several months of left heel pain COMPARISON: None available. TECHNIQUE: AP, lateral, and oblique views of the left foot. FINDINGS: No fracture, dislocation, or suspicious bone lesion. There is normal alignment. There is mild degenerative arthritis of the first MTP joint. There is mild spurring of the dorsal talonavicular joint. Joint spaces otherwise preserved. Normal plantar arch. There are small plantar and dorsal calcaneal spurs present. Normal-appearing soft tissues. XR/XR foot LT min 3V IMPRESSION: 1. No acute bony findings in the left foot. 2. Mild degenerative arthritis first MTP joint. 3. Small plantar and dorsal calcaneal spurs. Electronically signed by: Nikolai Pike MD 09/05/2025 04:32 PM EST
--- OUTSIDE RECORDS SUMMARY | 2025-09-05 15:15 | XMS_ITS | Encounter Summary ---
Author Organization [employer] Address [address] [place] [address] [address] [place] [address] Care Team Providers Care Curing Finisher Name Role Phone NameArsh MD Primary Care Provider [phone] Reason for Referral * Neurology (Routine) - Authorized Specialty Diagnoses / Procedures Referred By Contac t Referred To Contact Diagnoses Cervical radiculopathy Procedures Nerve conduction test NameArsh MD [address] [place] [address] Phone: tel: fax: [address] [address] Phone: tel: fax: Referral ID Status Reason Start Date Expiration Date V isits Requested Visits Authorized [id number] Authorized 09/05/2025 09/05/2026 1 1 * Neurology (Routine) - Authorized Specialty Diagnoses / Procedures Referred By Contac t Referred To Contact Diagnoses Cervical radiculopathy Procedures EMG NameArsh MD [address] [place] [address] Phone: tel: fax: [address] [phone] Phone: tel: fax: Referral ID Status Reason Start Date Expiration Date V isits Requested Visits Authorized [id number] Authorized 09/05/2025 09/05/2026 1 1 Reason for Visit * Reason Comments neck pain, left arm pain/paresthesias, l eft heel pain, foll Encounter Details Date Type Department Care Team (Elo st Contact Info) Description 09/05/2025 3:15 PM EST Office Visit [facility] [address] [place] [address] Name, MD Arsh [address] [place] [address] Neck pain (Primary Dx); Cervical radiculopathy; Chronic heel pain, left; Folliculitis; Heartburn; Encounter for immunization Social History Tobacco Use [...] Sign Reading Time Taken Comments Blood Pressure 132/84 09/05/2025 3:00 PM EST Pulse 88 09/05/2025 3:00 PM EST Temperature 36.4 C (97.6 F) 09/05/2025 3:00 PM EST Respiratory Rate 18 09/05/2025 3:00 PM EST Oxygen Saturation 98% 09/05/2025 3:00 PM EST Inhaled Oxygen Concentration - - Weight 98.5 kg (217 lb 3.2 oz) 09/05/2025 3:00 P M EST Height 180.3 cm (5' 11 ) 09/05/2025 3:00 PM EST Body Mass Index 30.29 09/05/2025 3:00 PM EST documented in this encounter Progress Notes * Arsh Piper MD - 09/05/2025 3:15 PM EST Subjective Patient ID: Akash Conley is a 65 y.o. male who presents for neck pain, left arm pain/paresthesias, left heel pain, folliculitis. Patient comes for a sick visit and we discussed several issues. Patient has 3 weeks of neck pain with radiation to the left arm. The patient describes neck discomfort associated with neck rotation, discomfort that radiates to the left arm associated with left armparesthesias. He does not have any arm weakness, no history of trauma to the neck. He explains to me the symptoms started after a neck massage. 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 He denies any chest pains, no shortness of breath, no fevers or chills. Patient complains of several months of left heel pain. He has difficulties walking because of the pain. Pain is precipitated by putting any pressure on the left heel. He explains to me that he is unable to walk barefoot because of this pain. He does not have any history of trauma to the left heel. The patient noted a small folliculitis lesion on the epigastric area of the abdomen. No surroundingskin erythema, no pus drainage and no similar lesions elsewhere. He agreed with the flu vaccination today. Review of Systems Constitutional: Negative for chills, fatigue and fever. HENT: Negative for sore throat. Respiratory: Negative for cough, chest tightness and shortness of breath. Cardiovascular: Negative for chest pain, palpitations and leg swelling. Gastrointestinal: Patient complains of frequent heartburn. No dysphagia or weight loss. Musculoskeletal: See HPI Skin: See HPI Objective Vitals: 09/05/25 1500 BP: 132/84 BP Location: Left arm Patient Position: Sitting BP Cuff Size: Adult Pulse: 88 Resp: 18 Temp: 97.6 ??F (36.4 ??C) TempSrc: Oral Weight: 217 lb 3.2 oz (98.5 kg) Height: 5' 11 (1.803 m) Physical Exam Constitutional: Appearance: Normal appearance. Cardiovascular: Rate and Rhythm: Normal rate and regular rhythm. Heart sounds: No murmur heard. Pulmonary: Effort: Pulmonary effort is normal. No respiratory distress. Breath sounds: No wheezing, rhonchi or rales. Abdominal: Palpations: Abdomen is soft. Tenderness: There is no abdominal tenderness. Musculoskeletal: Cervical back: Spasms and tenderness present. No rigidity. Normal range of motion. Right lower leg: No edema. Left lower leg: No edema. Skin: Comments: Small folliculitis skin lesion in the epigastric area of the abdomen Neurological: General: No focal deficit present. Mental Status: He is alert. Motor: No weakness. Assessment/Plan Diagnoses and all orders for this visit: Neck pain Comments: I suspect he has cervical spine DJD causing left arm radiculopathic pain. I recommended evaluation with cervical spine x-ray and nerve conduction studies. I prescribed the patient a short course of Celebrex for the pain. Orders: - XR CERVICAL SPINE 4V; Future Cervical radiculopathy - EMG; Future - Nerve conduction test; Future Chronic heel pain, left Comments: I suspect plantar fasciitis. I gave the patient some exercises he can do at home to treat this. He is encouraged to avoid walking barefoot, he is recommended to use shoes with proper heel cushioning.Evaluation with foot x-ray. For now he is not interested in referral to wharf tender helper. He would like to avoid any invasive intervention if possible. Orders: - XR Foot 3+ Views Left; Future Folliculitis Comments: I recommended topical bacitracin to the small affected area of the abdomen. Heartburn Comments: Patient would like to avoid using PPI if possible. We discussed his dietary habits. He frequently chews peppermint gum. He is recommended to avoid peppermint/mint, avoid caffeinated beverages, cut back on coffee consumption. Encounter for immunization Comments: Flu vaccine today. Orders: - FLU VACCINE TRIVALENT [id number] (Fluarix) 19 yrs + Other orders - celecoxib (CeleBREX) 200 MG capsule; Take 1 capsule (200 mg) by mouth if needed in the morning and at bedtime for mild pain or moderate pain for up to 10 days. Future Appointments Date Time Provider Department Center 11/07/2025 2:00 PM Arsh Piper MD ED [facility] documented in this encounter Miscellaneous Notes * Patient Education Note - Arsh Piper MD - 09/05/2025 8:38 PM EST Images from the original note were not included. Patient Education Table of Contents Exercises for Plantar Fasciitis To view videos and all your education online visit, [email or web address] or scan this QR code with your smartphone. Access to this content will in one year. Exercises for Plantar Fasciitis Foot and leg exercises can help if you have plantar fasciitis. Only do the exercises you were told to do. Make sure you know how to do the exercises safely. Follow the steps below. It's normal to feel milddiscomfort. Stop if you feel pain or your pain gets worse. Do not start these exercises until told by your health care provider. Stretching and [id number] exercises These exercises warm up your muscles and joints. They also help with movement and flexibility of your foot. They can help with pain. Plantar fascia stretch This exercise will stretch your plantar fascia, which is a band of thick tissue on the bottom of your foot. 1. Sit with your left / right leg crossed over your other knee. Hold your heel with one hand with that thumb near your arch. With your other hand, hold your toes. Gently pull your toes back toward the top of your foot. You should feel a stretch on the bottom of your toes, on the bottom of your foot, or both. Hold this stretch for seconds. Slowly let go of your toes. Go back to the starting position. Repeat times. Do this exercise times a day. Gastroc stretch, standing This exercise is called an upper calf, or gastroc, stretch. It stretches the muscles in the back ofyour upper calf. 1. Stand with your hands against a wall. Extend your left / right leg behind you. Bend your front knee just a little. Keep your heels on the floor, your toes facing forward, and your back knee straight. Shift your weight toward the wall. Do not arch your back. You should feel a gentle stretch in your upper calf. Hold this position for seconds. Repeat times. Do this exercise times a day. Soleus stretch, standing This exercise is called a lower calf, or soleus, stretch. It stretches the muscles in the back of your lower calf. 1. Stand with your hands against a wall. Extend your left / right leg behind you, and bend your front knee slightly. Keep your heels on the floor and your toes facing forward. Bend your back knee and shift your weight slightly over your back leg. You should feel a gentle stretch deep in your lower calf. Hold this position for seconds. Repeat times. Do this exercise times a day. Gastroc and soleus stretch, standing step This exercise stretches the muscles in the back of your lower leg. This includes your gastroc and soleus muscles. 1. Stand with the ball of your left / right foot on the front of a step. The ball of your foot is on the walking surface, right under your toes. Keep your other foot firmly on the same step. Hold on to the wall or a railing for balance. Slowly lift your other foot, letting your body weight press your heel down over the edge of the front of the step. Keep your knee straight and unbent. You should feel a stretch in your calf. Hold this position for seconds. Return both feet to the step. Repeat this exercise with a slight bend in your left / right knee. Repeat times with your left / right knee straight and times with your left / right knee bent. Do this exercise times a day. Balance exercise This exercise builds your balance and strength control of your arch. It helps take pressure off your plantar fascia. Single leg stand If this exercise is too easy, you can try it with your eyes closed or while standing on a pillow. 1. Without shoes, stand near a railing or in a doorway. You may hold on to the railing or doorway as needed. Stand on your left / right foot. Keep your big toe down on the floor. Lift the arch of your foot. You should feel a stretch across the bottom of your foot and arch. Do not let your foot roll inward. Hold this position for seconds. Repeat times. Do this exercise times a day. This information is not intended to replace advice given to you by your health care provider. Make sure you discuss any questions you have with your health care provider. Document Released: 2006-09-20 Document Updated: 2024-02-21 Document Reviewed: 2024-02-21 Elsevier Patient Education ? 2024 [employer] documented in this encounter Plan of Treatment Upcoming Encounters Date Type Department Care Team (Late st Contact Info) Description 11/07/2025 2:00 PM EST Office Visit [facility] [address] [place] [address] Name, MD Arsh [address] [place] [address] Scheduled Orders Name Type Priority Associated Diagnoses Orde r Schedule EMG Neurology Routine Cervical radiculopathy Expected: 09/05/2025 (Approximate), Expires: 09/05/2026 Nerve conduction test Neurology Routine Cervical radiculopathy Expected: 09/05/2025 (Approximate), Expires: 09/05/2026 documented as of this encounter Procedures Procedure Name Priority Date/Time Associated Diagnosis Comments XR CERVICAL SPINE 4V Routine 09/05/2025 4:22 PM EST Neck pain XR FOOT 3+ VIEWS LEFT Routine 09/05/2025 4:20 PM EST Chronic heel pain, left documented in this encounter Results * XR CERVICAL SPINE 4V (09/05/2025 4:22 PM EST) Anatomical Region Laterality Modality Abdomen Radiographic Jillian ging 09/05/2025 4:22 PM EST Narrative 09/05/2025 4:39 PM EST [address] [address] XRay Report Signed Patient: Akash Conley MR#: [id number] 34 : 1960 Acct:[id number] Age/Sex: 65 / M ADM Date: 09/05/25 Loc: HO.HHCX Attending Dr: Arsh Piper MD Ordering Physician: Arsh Piper MD Date of Service: 09/05/25 Procedure(s): XR cervical spine 4V Accession Number(s): [id number] cc: Arsh Piper MD Reason for Exam: Neck pain and left arm cervical radiculopathy EXAM: CR Xr Cervical Spine 4v TECHNIQUE: AP, AP odontoid, lateral, bilateral oblique views, x-rays of the cervical spine INDICATION: Neck pain with left upper extremity radiculopathy PRIOR: December 27, 2018 FINDINGS: There is straightening of the cervical lordosis. There is no prevertebral soft tissue swelling. C2-3: Unremarkable C3-4: Mild disc space narrowing with endplate sclerosis and osteophytes. There is mild to moderate left foraminal narrowing and minimal right foraminal narrowing. C4-5: Moderate disc space narrowing with endplate osteophytes and sclerosis. There is mild bilateral foraminal narrowing. C5-6: Bony fusion C6-7: There is mild to moderate disc space narrowing with endplate sclerosis and osteophytes. There is moderate right and minimal left foraminal narrowing. C7-T1: There is mild disc space narrowing and uncovertebral osteophytes with mild to moderate right and mild left foraminal narrowing. XR/XR cervical spine 4V IMPRESSION: There is straightening of the expected cervical lordosis. This can be idiopathic, but can also be related to degenerative change, muscle spasm, or posterior soft tissue injury. Multilevel degenerative changes are most pronounced at C4-5. There is fusion versus nonsegmentation of C5-6 vertebral bodies. Electronically signed by: Kiko Lara MD 09/05/2025 04:36 PM EST Dictated By: Kiko Lara MD Signed By: <Electronically signed by Kiko Lara MD in OV> 09/05/25 1636 DD/ 1622 TD/TT: 09/05/25 1622 Clothing Supervisor: Procedure Note Donotuseinterpreter, Image - 09/05/[address] [address] XRay Report Signed Patient: Akash Conley EMR#: [id number] 35 : 1960cct:[id number] Age/Sex: 65 / MADM Date: 09/05/25 Loc: HO.HHCX Attending Dr: Arsh Piper MD Ordering Physician: Arsh Piper MD Date of Service: 09/05/25 Procedure(s): XR cervical spine 4V Accession Number(s): [id number] cc: Arsh Piper MD Reason for Exam: Neck pain and left arm cervical radiculopathy EXAM: CR Xr Cervical Spine 4v TECHNIQUE: AP, AP odontoid, lateral, bilateral oblique views, x-rays of the cervical spine INDICATION: Neck pain with left upper extremity radiculopathy PRIOR: December 27, 2018 FINDINGS: There is straightening of the cervical lordosis. There is no prevertebral soft tissue swelling. C2-3: Unremarkable C3-4: Mild disc space narrowing with endplate sclerosis and osteophytes. There is mild to moderate left foraminal narrowing and minimal right foraminal narrowing. C4-5: Moderate disc space narrowing with endplate osteophytes and sclerosis. There is mild bilateral foraminal narrowing. C5-6: Bony fusion C6-7: There is mild to moderate disc space narrowing with endplate sclerosis and osteophytes. There is moderate right and minimal left foraminal narrowing. C7-T1: There is mild disc space narrowing and uncovertebral osteophytes with mild to moderate right and mild left foraminal narrowing. XR/XR cervical spine 4V IMPRESSION: There is straightening of the expected cervical lordosis. This can be idiopathic, but can also be related to degenerative change, muscle spasm, or posterior soft tissue injury. Multilevel degenerative changes are most pronounced at C4-5. There is fusion versus nonsegmentation of C5-6 vertebral bodies. Electronically signed by: Kiko Lara MD 09/05/2025 04:36 PM EST RP Dictated By: Kiko Lara MD Signed By: <Electronically signed by Kiko Lara MD in OV> 09/05/25 1636 DD/ 1622 TD/TT: 09/05/25 1622 Clothing Supervisor: Arsh Piper MD IMG XR PROCEDURES Final Result * XR Foot 3+ Views Left (09/05/2025 4:20 PM EST) Anatomical Region Laterality Modality Lower Extremities, Foot Left Radiogra phic Imaging 09/05/2025 4:20 PM EST Narrative 09/05/2025 4:35 PM EST [address] [address] XRay Report Signed Patient: Akash Conley MR#: [id number] 35 : 1960 Acct:[id number] Age/Sex: 65 / M ADM Date: 09/05/25 Loc: HO.HHCX Attending Dr: Arsh Piper MD Ordering Physician: Arsh Piper MD Date of Service: 09/05/25 Procedure(s): XR foot LT min 3V Accession Number(s): [id number] cc: Arsh Piper MD Reason for Exam: several months of left heel pain EXAMINATION: XR FOOT, LEFT CLINICAL INFORMATION: several months of left heel pain COMPARISON: None available. TECHNIQUE: AP, lateral, and oblique views of the left foot. FINDINGS: No fracture, dislocation, or suspicious bone lesion. There is normal alignment. There is mild degenerative arthritis of the first MTP joint. There is mild spurring of the dorsal talonavicular joint. Joint spaces otherwise preserved. Normal plantar arch. There are small plantar and dorsal calcaneal spurs present. Normal-appearing soft tissues. XR/XR foot LT min 3V IMPRESSION: 1. No acute bony findings in the left foot. 2. Mild degenerative arthritis first MTP joint. 3. Small plantar and dorsal calcaneal spurs. Electronically signed by: Nikolai Pike MD 09/05/2025 04:[address] [facility] Dictated By: Nikolai Pike MD Signed By: <Electronically signed by Nikolai Pike MD in OV> 09/05/25 1632 DD/ 1620 TD/TT: 09/05/25 1622 Clothing Supervisor: Procedure Note Donotuseinterpreter, Image - 09/05/[address] [address] XRay Report Signed Patient: Akash Conley EMR#: [id number] 35 : 1960cct:[id number] Age/Sex: 65 / MADM Date: 09/05/25 Loc: HO.HHCX Attending Dr: Arsh Piper MD Ordering Physician: Arsh Piper MD Date of Service: 09/05/25 Procedure(s): XR foot LT min 3V Accession Number(s): [id number] cc: Arsh Piper MD Reason for Exam: several months of left heel pain EXAMINATION: XR FOOT, LEFT CLINICAL INFORMATION: several months of left heel pain COMPARISON: None available. TECHNIQUE: AP, lateral, and oblique views of the left foot. FINDINGS: No fracture, dislocation, or suspicious bone lesion. There is normal alignment. There is mild degenerative arthritis of the first MTP joint. There is mild spurring of the dorsal talonavicular joint. Joint spaces otherwise preserved. Normal plantar arch. There are small plantar and dorsal calcaneal spurs present. Normal-appearing soft tissues. XR/XR foot LT min 3V IMPRESSION: 1. No acute bony findings in the left foot. 2. Mild degenerative arthritis first MTP joint. 3. Small plantar and dorsal calcaneal spurs. Electronically signed by: Nikolai Pike MD 09/05/2025 04:32 PM EST Dictated By: Nikolai Pike MD Signed By: <Electronically signed by Nikolai Pike MD in OV> 09/05/25 1632 DD/ 1620 TD/TT: 09/05/25 1622 Clothing Supervisor: Arsh Piper MD IMG XR PROCEDURES Final Result documented in this encounter Visit Diagnoses Diagnosis Neck pain- Primary Cervicalgia Cervical radiculopathy Brachial neuritis or radiculitis nos Chronic heel pain, left Folliculitis Other specified disease of hair and hair follicles Heartburn Encounter for immunization documented in this encounter Additional Health Concerns Assessment Noted Time PHQ-9 Depression Total Score: 0 04/25/20 24 11:01 AM EDT documented as of this encounter Care Teams Curing Finisher Relationship Specialty Start Date End Date Name, MD Arsh [address] [place] [address] PCP - General Family Medicine 12/23/18 documented as of this encounter
--- OUTSIDE RECORDS SUMMARY | 2025-09-05 18:43 | XMS_ITS | Clinical Summary ---
Author Organization [employer] Address [address] [facility] 7t [place] [address] Care Team Providers Care Wheel Borer Name Role Phone Name, Arsh NEWBY Primary Care Provider [phone] Allergies No known active allergies Medications omeprazole [...] Once per day. 30 tablet 11 4 Active ezetimibe (Zetia) 10 MG tablet Take 1 tablet (10 mg) by mouth Once per day. 30 tablet 11 4 Active tadalafil (Cialis) 20 MG tablet Take 1 tablet (20 mg) by mouth if needed each day for erectile dysfunction. 10 tablet 4 Active celecoxib (CeleBREX) 200 MG capsule Take 1 capsule (200 mg) by mouth if needed in the morning and at bedtime for mild pain or moderate pain for up to 10 days. 20 capsule 1 5 09/15/20 25 Active Active Problems Problem Noted Date Diagnosed [...] D deficiency 10/28/2022 Malignant tumor of prostate (CMS/HCC) 07/29/2021 Overview (10/28/2022): S/p prostatectomy Hyperparathyroidism 01/06/2019 Overview (10/28/2022): S/p parathyroidectomy Chronic low back pain 12/23/2018 Rotator cuff arthropathy of left shoulder 2018 Radicular pain 12/23/2018 Resolved Problems Problem Noted Date Diagnosed Date Resolved Date Osteoarthritis of shoulder 10/28/2022 0 01/12/2024 Raised prostate specific antigen 10/28/2022 10/28/2022 Hypercalcemia 12/27/2018 04/25/2024 Encounters Date Type Department Care Team Description 09/05/2025 3:15 PM EST Office Visit [facility] [address] [place] [address] Arsh Piper MD Neck pain (Primary Dx); Cervical radiculopathy; Chronic heel pain, left; Folliculitis; Heartburn; Encounter for immunization 09/05/2025 Travel 09/04/2025 Travel 09/03/2025 Travel 09/03/2025 Telephone [facility] [address] [place] [address] Arsh Piper MD Nurse Triage from Last 3 Months Immunizations Immunization Administration Dates Next Due Influenza Injectable Quadriv alant Preservative Free IIV4 MDCK 07/08/2018 Influenza injectable quadriv alent preservative free 08/02/2023,06/26/2022,09/01/2021,2019 Influenza, IIV3, injectable 11/05/2017,1 ,09/06/2015,2012 Influenza, seasonal, injecta ble, preservative free 09/05/2025,07/26/2024 Pfizer Covid-19 Vaccine 12+ 09/14/2023,1 11/09/2020,11/28/2020,2020 Pneumococcal [...] your housing situation today? I have jane joe 04/25/[address] you li [...] Mass Index 30.29 09/05/2025 3:00 PM EST Plan of Treatment Upcoming Encounters Date Type Department Care Team (Late st Contact Info) Description 11/07/2025 2:00 PM EST Office Visit [facility] [address] [place] [address] Name, MD Arsh [address] [place] [address] Health Maintenance Due Date Last Done Comments CT Colonography 1961 Colonoscopy 1960 HIV Screening 1960 Sigmoidoscopy 1961 Alcohol/Substance Use Screening 1973 FIT 06/14/2024 06/14/2023 Depression Screening 04/25/2025 04/25/2024, 04/25/20 24 SDOH Screening 04/25/2025 04/25/2024 COVID-19 Vaccine ( season) 2025 09/14/2023, 09/08/2021, 11/28/2020, Additional history exists FOBT 05/11/2026 05/11/2025, 0805/2025, 06/14/2023 Disability Screening 09/04/2026 09/04/2025 Tobacco Screening 09/05/2026 09/05/2025 Colorectal Cancer Screening 05/11/2028 FIT DNA/Cologuard 05/11/2028 05/11/2025, 05/11/2025 Lipid Panel 12/15/2029 12/15/2024, 04/04, 01/20/2024, Additional history exists DTaP/Tdap/Td Vaccines (3 - Td or Tdap) 12/18/2030 12/18/2020, 11/10/2010, 01/26/2001 RSV Patients and Patients Aged 60 years or older (1 - 1-dose 75+ series) 2036 Zoster Vaccines Completed 11/28/2021, 09/01/2021 Hepatitis C Screening Completed 04/27/2024 Pneumococcal Vaccine: 50+ Years Completed 12/12/2024 Influenza Vaccine Completed 09/05/2025, , 08/02/2023, Additional history exists HIB Vaccines Aged Out No longer eligi [...] 4:20 PM EST Chronic heel pain, left HM FIT DNA/COLOGUARD CANCER SCREENING Routine 05/11/2025 LIPID PANEL, STANDARD Routine 12/15/2024 12:06 PM EDT Primary hypertension High cholesterol History of prostate cancer S/P prostatectomy HEPATITIS C AB W/REFL TO HCV RNA, QN, PCR Routine 04/27/2024 12:45 PM EDT Need for hepatitis C screening test FECAL IMMUNOCHEMICAL TEST Routine 06/14/2023 from Last 3 Months or Most Recently Relevant to Health Maintenance Results * XR CERVICAL SPINE 4V (09/05/2025 4:22 PM EST) Anatomical Region Laterality Modality Abdomen Radiographic Jillian ging 09/05/2025 4:22 PM EST Narrative 09/05/2025 4:39 PM EST [facility] [address] [place] [address] XRay Report Signed Patient: Akash Conley MR#: [id number] 34 : 1960 Acct:[id number] Age/Sex: 65 / M ADM Date: 09/05/25 Loc: HO.HHCX Attending Dr: Arsh Piper MD Ordering Physician: Arsh Piper MD Date of Service: 09/05/25 Procedure(s): XR cervical spine 4V Accession Number(s): [id number] cc: Arsh Piper MD Reason for Exam: [...] 09/05/25 1636 DD/ 1622 TD/TT: 09/05/25 1622 Crossbow Maker: Procedure Note Donotuseinterpreter, Image - 09/05/[address] [address] XRay Report Signed Patient: Akash Conley EMR#: [id number] 35 : 1960cct:[id number] Age/Sex: 65 / MADM Date: 09/05/25 Loc: HO.HHCX Attending Dr: Arsh Piper MD Ordering Physician: Arsh Piper MD Date of Service: 09/05/25 Procedure(s): XR cervical spine 4V Accession Number(s): [id number] cc: Arsh Piper MD Reason for Exam: [...] 09/05/25 1636 DD/ 1622 TD/TT: 09/05/25 1622 Crossbow Maker: Arsh Piper MD IMG XR PROCEDURES Final Result * XR Foot 3+ Views Left (09/05/2025 4:20 PM EST) Anatomical Region Laterality Modality Lower Extremities, Foot Left [facility] 09/05/2025 4:20 PM EST Narrative 09/05/2025 4:35 PM EST [address] [address] XRay Report Signed Patient: Akash Conley MR#: [id number] [birth year] : 1960 Acct:[id number] Age/Sex: 65 / M ADM Date: 09/05/25 Loc: .HHCX Attending Dr: Arsh Piper MD Ordering Physician: Arsh Piper MD Date of Service: 09/05/25 Procedure(s): XR foot LT min 3V Accession Number(s): [id number] cc: Arsh Piper MD Reason for Exam: [...] by: Nikolai Pike MD 09/05/2025 04:32 PM [facility] Dictated By: Nikolai Pike MD Signed By: <Electronically signed by Nikolai Pike MD in OV> 09/05/25 1632 DD/ 1620 TD/TT: 09/05/25 1622 Crossbow Maker: Procedure Note Donotuseinterpreter, Image - 09/05/2025 [place] [address] XRay Report Signed Patient: Akash Conley EMR#: [id number] 35 : 1960cct:[id number] Age/Sex: 65 / MADM Date: 09/05/25 Loc: HO.HHCX Attending Dr: Arsh Piper MD Ordering Physician: Arsh Piper MD Date of Service: 09/05/25 Procedure(s): XR foot LT min 3V Accession Number(s): [id number] cc: Arsh Piper MD Reason for Exam: [...] Nikolai Pike MD 09/05/2025 04:32 PM EST RP Dictated By: Nikolai Pike MD Signed By: <Electronically signed by Nikolai Pike MD in OV> 09/05/25 1632 DD/ 1620 TD/TT: 09/05/25 1622 Crossbow Maker: us Arsh Piper MD IMG XR PROCEDURES Final Result * FIT DNA/Cologuard Cancer Screening (05/11/2025) Cologuard Cancer Screen Negative Stool 05/11/2025 us Arsh Piper MD HEALTH MAINTENANCE Final Result * (ABNORMAL) Lipid Panel, Standard (12/15/2024 12:06 PM EDT) Triglycerides 67 <150 mg/dL [facility] Comment:Desirable Triglyceri de: less than 150 mg/dLBorderline High Triglyceride 150-199 mg/dLHigh Triglyceride: 200-499 mg/dLVery High Triglyceride: greater than or equal to 5OO mg/dL Cholesterol 199 <200 mg/dL [facility] Comment:Desirable Cholestero l: less than 200 mg/dLBorderline High Cholesterol: 200-239 mg/dLHigh Cholesterol: greater than 239 mg/dL LDL Cholesterol Calculated 137(H) <100 mg/dL [facility] Comment:Desirable LDL: less than 100 mg/dLNear Optimal/Above Optimal LDL: 110- 129 mg/dLBorderline High LDL: 130-159 mg/dLHigh LDL: 160-189 mg/dLVery High LDL: greater than or equal to 190 mg/dL HDL Cholesterol 49 >40 mg/dL [facility] Comment:Desirable HDL: great er than 40 mg/dL Note: This HDL assay may give artificially low results in patients with liver disease. Blood Venous blood specimen / Unknown 12/15/2024 12:06 PM EDT 12/15/2024 1:32 PM EDT us Arsh Piper MD LAB BLOOD ORDERABLES Final Resul t Performing Organization Address [facility] Co de Phone Number [facility] [address] [place] [address] [phone] * Hepatitis C Antibody with Reflex to HCV, RNA, Quantitative, Real-Time PCR (04/27/2024 12:45 PM EDT) Hepatitis C Antibody Nonreactive Nonreactive [facility] Comment:Antibodies to HCV no t detected; does not exclude early acuteHCV infection. Blood Venous blood specimen / Unknown 04/27/2024 12:45 PM EDT 04/27/2024 3:59 PM EDT us Arsh Piper MD LAB BLOOD ORDERABLES Final Resul t Performing Organization Address [facility] Co de Phone Number [facility] [address] [place] [phone] * Fecal Immunochemical Test (06/14/2023) Fecal Immunochemical Test Nonreactive Stool Rectal contents / Unknown us Arsh Piper MD HEALTH MAINTENANCE Final Result from Last 3 Months or Most Recently Relevant to Health Maintenance Insurance [facility] MEDICARE ADVANTAGE HMO Care Teams Wheel Borer Relationship Specialty Start Date End Date Name, MD Arsh [address] [place] [address] PCP - General Family Medicine 12/23/18
--- OUTSIDE RECORDS SUMMARY | 2025-09-05 18:43 | XMS_ITS | Encounter Summary ---
Author Organization [email or web address] Address [address] [facility] 7t [place] [address] Care Team Providers Care Cable Braider Name Role Phone Name, Arsh NEWBY Primary Care Provider [phone] Reason for Visit * Reason Onset Date Comments Nurse Triage 09/03/2025 Encounter Details Date Type Department Care Team ([facility] st Contact Info) Description 09/03/2025 Telephone [facility] [address] [place] [address] Name, MD Arsh [address] [place] [address] Nurse Triage Social History Tobacco Use Types Packs/Day Years [...] AM EDT documented as of this encounter Miscellaneous Notes * Telephone Encounter - Karuna Herrera RN - 09/03/2025 2:25 PM EST TC returned to pt to triage skin spot on chest. Patient states that yesterday when in the shower henoticed a red raised red hard lump about the size of a mosquito bite states only one spot. Patient states the area is painful to touch and wondering if it is spider bite he denies any fevers or signsof infection however would like it to be assessed. Patient also reports that his left heel is painful and is interfering with walking as pain increases with weight bearing and it is becoming worse. Patient not able to come to the clinic today however was scheduled with PCP tomorrow at 1:15. Protocol Used: Skin Lesion - Moles or Growths (Adult) Protocol-Based Disposition: See in Office or Video Visit within 3 Days Video visit offer not recorded Positive Triage Question: * Patient wants to be seen * All higher-acuity triage questions were negative. Care Advice Discussed: * Reasons To Call Back - Fever or pain occurs - You become worse * Telephone Encounter - Mychal Ayon - 09/03/2025 11:47 AM EST Symptom: Skin Spot Outcome: Schedule a same-day appointment or talk to a nurse or provider today Reason: Skin is painful to touch The caller accepted this outcome. Contact pt at [phone] documented in this encounter Plan of Treatment Upcoming Encounters Date Type Department Care Team (Late st Contact Info) Description 11/07/2025 2:00 PM EST Office Visit [facility] [address] [place] [address] Name, MD Arsh [address] [place] [address] documented as of this encounter Visit Diagnoses Not on filedocumented in this encounter Additional Health Concerns Assessment Noted Time PHQ-9 Depression Total Score: 0 04/25/20 24 11:01 AM EDT documented as of this encounter Care Teams Cable Braider Relationship Specialty Start Date End Date NameArsh MD [address] [place] [phone] PCP - General Family Medicine 12/23/18 documented as of this encounter
--- OUTSIDE RECORDS SUMMARY | 2025-09-05 18:43 | XMS_ITS | Encounter Summary ---
Author Organization [employer] Address [address] [facility] 7t [place] [address] Care Team Providers Care Ball Machine Operator Name Role Phone Name, Arsh NEWBY Primary Care Provider [phone] Encounter Details Date Type Department Care Team (Latest Contact Info) Description 09/04/2025 Travel Social History Tobacco Use Types Packs/Day [...] as of this encounter Plan of Treatment Upcoming Encounters Date Type Department Care Team (Late st Contact Info) Description 11/07/2025 2:00 PM EST Office Visit [facility] [address] [place] [address] Name, MD Arsh [address] [place] [address] documented as of this encounter Visit Diagnoses Not on filedocumented in this encounter Additional Health Concerns Assessment Noted Time PHQ-9 Depression Total Score: 0 04/25/20 24 11:01 AM EDT documented as of this encounter Care Teams Ball Machine Operator Relationship Specialty Start Date End Date Name, MD Arsh [address] [place] [address] PCP - General Family Medicine 12/23/18 documented as of this encounter
--- OUTSIDE RECORDS SUMMARY | 2025-09-05 18:43 | XMS_ITS | Patient Health Record ---
Author Organization [facility] Address [address] [place] [address] Care Team Providers Care Black Top Raker Name Role Phone Jennifer NEWBY, Ana Primary Care Provider Darío Ortega Unavailable [phone] Reason For Referral No Information Social History Tobacco use other than smoking: Question Answer Notes Are you an other tobacco user? No Problems Problem Type SNOMED Code ICD Code Onset Dates Problem Status W/U Status Risk Notes Problem Plantar fascial fibromatosis (38943721) Plantar fascial fibromatosis (M72.2) Active confirmed Problem Plantar wart (14716388) Plantar wart (B07.0) Active confirmed Plan Of Treatment Pending Test Test Name Order Date [id number]-[id number] Destruction, -08/06/2016 25243-Tqgb Destruction, -08/31/2016 Insurance Providers Payer Name Payer Address Payer Phone Subscriber Number Group Number Insured Name Patient Relationship to Insured Coverage Start Date Coverage End Date Medicare National [employer] [address] [place] [address] [id number] Akash Conley Self - patient is the insured Medical (General) History Medical History History ICD Code Angina Arthritis Back,Hip,and Knee pain CAD (Cholesterol) Headaches Chicken pox Surgical History Surgery Date(Month/Year) achilles heel surgery 2009
--- OUTSIDE RECORDS SUMMARY | 2025-09-05 18:43 | XMS_ITS | Encounter Summary ---
Author Organization [employer] Address [address] [facility] 7t [place] [address] Care Team Providers Care Nutrition Associate Name Role Phone Name, Arsh NEWBY Primary Care Provider [phone] Reason for Visit * Reason Comments Med Refill Encounter Details Date Type Department Care Team (Late st Contact Info) Description 11/17/2023 Refill [facility] [address] [place] [address] Name, MD Arsh [address] [place] [address] High cholesterol Social History Tobacco Use Types [...] Description 11/07/2025 2:00 PM EST Office Visit [facility] [address] [place] [address] Name, MD Arsh [address] [place] [address] documented as of this encounter Visit Diagnoses Diagnosis High cholesterol Pure hypercholesterolemia documented in this encounter Additional Health Concerns Assessment Noted Time PHQ-9 Depression Total Score: 0 02/26/20 23 11:09 AM EDT documented as of this encounter Care Teams Nutrition Associate Relationship Specialty Start Date End Date Name, MD Arsh [address] [place] [address] PCP - General Family Medicine 12/23/18 documented as of this encounter
--- OUTSIDE RECORDS SUMMARY | 2025-09-05 18:43 | XMS_ITS | Encounter Summary ---
Author Organization [employer] Address [address] [facility] 7t [place] [address] Care Team Providers Care Swimming Pool Installer And Servicer Name Role Phone Name, Arsh NEWBY Primary Care Provider [phone] Encounter Details Date Type Department Care Team (Latest Contact Info) Description 09/05/2025 Travel Social History Tobacco Use Types Packs/Day [...] Description 11/07/2025 2:00 PM EST Office Visit [facility] [address] [place] [address] Name, MD Arsh [address] [place] [address] documented as of this encounter Visit Diagnoses Not on filedocumented in this encounter Additional Health Concerns Assessment Noted Time PHQ-9 Depression Total Score: 0 04/25/20 24 11:01 AM EDT documented as of this encounter Care Teams Swimming Pool Installer And Servicer Relationship Specialty Start Date End Date Name, MD Arsh [address] [place] [address] PCP - General Family Medicine 12/23/18 documented as of this encounter
--- OUTSIDE RECORDS SUMMARY | 2025-09-05 18:43 | XMS_ITS | Encounter Summary ---
Author Organization [employer] Address [address] [facility] 7t [place] [address] Care Team Providers Care Bottom Bleacher Name Role Phone Name, Arsh NEWBY Primary Care Provider [phone] Encounter Details Date Type Department Care Team (Latest Contact Info) Description 09/03/2025 Travel Social History Tobacco Use Types Packs/Day [...] Description 11/07/2025 2:00 PM EST Office Visit [facility] [address] [place] [address] Name, MD Arsh [address] [place] [address] documented as of this encounter Visit Diagnoses Not on filedocumented in this encounter Additional Health Concerns Assessment Noted Time PHQ-9 Depression Total Score: 0 04/25/20 24 11:01 AM EDT documented as of this encounter Care Teams Bottom Bleacher Relationship Specialty Start Date End Date Name, MD Arsh [address] [place] [address] PCP - General Family Medicine 12/23/18 documented as of this encounter
--- OUTSIDE RECORDS SUMMARY | 2025-09-05 18:43 | XMS_ITS | Encounter Summary ---
Author Organization [employer] Address [address] [place] [address] [address] [place] [address] Care Team Providers Care Mine Safety Director Name Role Phone Name, Arsh NEWBY Primary Care Provider [phone] Encounter Details Date Type Department Care Team (Latest Contact Info) Description 04/01/2021 Abstract [facility] CONVERSIONS Dental, Provider, DDS Social History Tobacco [...] Description 11/07/2025 2:00 PM EST Office Visit [facility] [address] [place] [address] Name, MD Arsh [address] [place] [address] documented as of this encounter Visit Diagnoses Not on filedocumented in this encounter Care Teams Mine Safety Director Relationship Specialty Start Date End Date Name, MD Arsh [address] [place] [address] PCP - General Family Medicine 12/23/18 documented as of this encounter
--- OUTSIDE RECORDS SUMMARY | 2025-09-05 18:43 | XMS_ITS | Clinical Summary ---
Author Organization [employer] [facility] ity Address [address] [place] [address] Care Team Providers Care Therapy Teacher Name Role Phone Unavailable Primary Care Provider [...] 2011 Zoster Vaccines (1 of 2) 2011 Depression Screening 10/04/2024 COVID-19 Vaccine (2024-2 6 season) 2025 Influenza Vaccine (#1) 2025 RSV Immunization Adult [...]
== END 2025-09-05 15:53 | disposition home or self-care (01) ==
LOC: HO.HHCX 15:52
PROVIDERS: PCP Internal Medicine Geriatric Medicine; Visit Provider Internal Medicine Geriatric Medicine
DX: M54.12 Radiculopathy, cervical region (principal); M79.672 Pain in left foot; G89.29 Other chronic pain
CPT/HCPCS: 72050; 73630

== ENCOUNTER → 2025-09-05 15:56 | Outpatient (BNV) | payer MEDICARE, SELFPAY | PROVIDERS: PCP Internal Medicine Geriatric Medicine; Visit Provider Radiology Diagnostic Radiology | DX: M47.22 Other spondylosis with radiculopathy, cervical region (principal); M19.071 Primary osteoarthritis, right ankle and foot; M77.32 Calcaneal spur, left foot | CPT/HCPCS: 72050; 73630 ==